=== PATIENT | male | born 1990 | race Caucasian/White ===

== ENCOUNTER 2016-11-07 13:19 | Emergency (ER) | payer OTHER ==
[~2016-11-07] VITALS: Ht 185.4 cm; Wt 127.0 kg
[~2016-11-07 13:19] MED LIST: IBU800 MG PO; IBUPROFEN800 MG PO; LEVOTHYROXINE0.2 M2 PO; NAPROSYN500 M1 PO; ORPHENADRINE C100 MG PO; OXYCODONE5 MG PO; SKELAXIN800 MG PO; TRAMADOL HYDROC50 MG PO; TRAMADOL50 MG PO; ULTRAM50 M1 PO
[2016-11-07 13:44] VITALS: BP 126/88
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
--- NOTE | 2016-11-07 14:52 | RADIOLOGY REPORT ---
EXAMINATION: XR FOOT, RIGHT CLINICAL INFORMATION: Trauma to the foot. Pain. COMPARISON: None TECHNIQUE: AP, lateral, and oblique views of the right foot. FINDINGS: The bones and soft tissues are normal. No fracture. Alignment is anatomic. Joint spaces are maintained. IMPRESSION: Normal right foot.
== END 2016-11-07 15:40 ==
LOC: ERH 13:19
DX: S97.81XA Crushing injury of right foot, initial encounter (principal); V86.59XA Driver of other special all-terrain or other off-road motor vehicle injured in nontraffic accident, initial encounter; Y92.9 Unspecified place or not applicable; Y93.9 Activity, unspecified
CPT/HCPCS: 73630-RT